=== PATIENT | female | born 1975 | race Caucasian/White ===

== ENCOUNTER 2020-08-24 17:48 | Emergency (ER) | payer OTHER, SELFPAY ==
[2020-08-24 17:52] VITALS: BP 141/69; PULSE 79; RESP 18; TEMP 36.6; O2SAT 98; BMI 32.3
[2020-08-24] MEDS: Lidocaine HCl 1 % MPF 5 ML VIAL 10 ML SUBCUT (19:11)
[2020-08-24 19:14] LABS: UPreg QC Valid YES; Urine Pregnancy NEGATIVE (NEGATIVE)
--- NOTE | 2020-08-24 19:39 | ED.WOUNDLAC ---
HPI - Wound/Laceration General Chief Complaint: Wound/Laceration Stated Complaint: Finger lac Time Seen by Provider: 08/24/20 18:50 Source: patient Mode of arrival: ambulatory Limitations: no limitations History of Present Illness HPI narrative: 38-year-old female presenting with laceration to the lateral aspect of the left index finger occurred at home while preparing food. Knife was clean. Slight bleeding from site unsure of last tetanus vaccination. Has full range of motion. Onset (ago): minute(s) Related Data Allergies Allergy/AdvReac Type Severity Reaction Status Date / Time amoxicillin [Amoxicillin] Allergy Mild HIVES Unverified 05/31/20 16:18 Penicillins Allergy Mild HIVES Unverified 05/31/20 16:18 Sulfa (Sulfonamide Allergy Mild HIVES Unverified 05/31/20 16:18 Antibiotics) penicillin V Allergy Unknown Verified 12/21/15 00:00 Review of Systems Review of Systems: Constitutional: No Weight loss, No Fever, No Chills, No Night Sweats, No Fatigue, No Malaise ENT/Mouth: No Hearing loss, No Ear Pain Eyes: No Eye Pain, No Swelling, No Redness Cardiovascular: No Chest Pain, No SOB, No Dyspnea on Exertion, No Orthopnea, No Edema, No Palpitations Respiratory: No Cough, No Sputum, No Wheezing, No Smoke Exposure, No Dyspnea Gastrointestinal: No Nausea, No Vomiting, No Diarrhea, No Constipation, No abdominal Pain Genitourinary: No Dysuria Musculoskeletal: No joint pain, No Myalgias, No Joint Swelling Skin: No Skin Lesions, No rash, as noted in HPI L index finger lac Neuro: No Weakness, No Numbness, No Paresthesias, No Loss of Consciousness, No Dizziness, No Headache Psych: No Social Issues Heme/Lymph: No Bruising, No Bleeding,No Lymphadenopathy Endocrine: No Polyuria, No Polydipsia, No Temperature Intolerance Yes all other systems are reviewed and are negative [facility] Past Medical History Medical History (Updated 08/24/20 @ 19:45 by Omkar Todd NP) ADD (attention deficit disorder) Social History Social History Alcohol intake: never Smoked in Last 30 Days: No Use of substances other than those prescribed or required for medical reasons: No Advance Directives: No Advance Directives Information Provided: Yes Physical Exam Vital Signs: Vital Signs: Last Vital Signs Temp 98 F 08/24/20 17:52 Pulse 79 08/24/20 17:52 Resp 18 08/24/20 17:52 BP 141/69 H 08/24/20 17:52 Pulse Ox 98 08/24/20 17:52 Body Mass Index 32.3 Reviewed Const: General: cooperative and healthy appearing; No acute distress or intoxicated appearing Nutritional Appearance: average body habitus Orientation/consciousness: patient oriented x3 HENMT: Head: Yes normal to inspection Ears: hearing grossly normal bilaterally Chest: Chest palpation & inspection: normal inspection of the chest Resp: Effort & Inspection: normal respiratory effort Cardio: Jugular venous distension: no JVD Skin: General skin exam: no rashes or lesions noted Neuro: General: patient oriented x3 Extrem: General: Yes normal to inspection Hand/finger images: 1. 1.5 centimetre superficial laceration only through the adipose tissue. Has full range in, flexion, extension, adduction and abduction. Cap refill within normal limits. Course Course Course Narrative: Single superficial laceration to the left index finger requiring for superficial stitches to repair. Given tetanus vaccination. No ligament taken involvement. Neurovascular intact. No need for antibiotics. Given her tetanus vaccination, finger splint and home care instructions. No need for antibiotics. She feels comfortable plan stable for discharge will return in 7 days for suture removal. Procedures Laceration Laceration 1: Site: hand (Index finger) Side (If applicable): left Size (cm): 1.5 Description: linear Depth: simple, single layer Local Anesthetic: lidocaine 1% Amount of anesthesia used (mL): 4 Skin layer closed with: nylon Size (cm): 5-0 Number of sutures: 4 Technique: simple, interrupted MDM - Wound/Laceration Lab Data Labs: Lab Results 08/24/20 Range/Units 18:53 Urine Test NEGATIVE (NEGATIVE) Discharge Plan Discharge Clinical Impression: Laceration Patient Disposition: Home, Self-Care Instructions: Finger Laceration (ED) Additional Instructions: Today you were evaluated for the laceration to the left index finger requiring localize number medication and suture repair Your given a tetanus vaccination Use finger splint for comfort And to mobilize the finger to allow further healing Keep site clean and dry for the 1st 48 hours and after you can wash with soap and water but do not submerge underwater Monitor for any signs of infection including redness, swelling, discharge, pain, fever if any these present returns emergency room right away otherwise return in 7 days for suture removal Thank you Referrals: Pernell Brand MD, DO [Primary Care Provider] - 1 week Omkar Todd NP [Emergency Midlevel Provider] - 1 week (Suture removal )
== END 2020-08-24 20:03 | disposition home or self-care (01) ==
PROVIDERS: Emergency Provider Internal Medicine; PCP Internal Medicine
DX: S61.211A Laceration without foreign body of left index finger without damage to nail, initial encounter (principal); S60.411A Abrasion of left index finger, initial encounter; M79.645 Pain in left finger(s); W26.9XXA Contact with unspecified sharp object(s), initial encounter; Y93.G3 Activity, cooking and baking; Y92.000 Kitchen of unspecified non-institutional (private) residence as the place of occurrence of the external cause; Y99.9 Unspecified external cause status; Z23 Encounter for immunization
CPT/HCPCS: 12001; 81025; 90471; 90715; 99284

== ENCOUNTER 2020-10-15 10:40 | Outpatient (REF) | payer OTHER, SELFPAY | END 2020-10-15 10:41 | disposition home or self-care (01) | LOC: HO.LAB 10:40 | PROVIDERS: Visit Provider Internal Medicine | DX: Z20.822 Contact with and (suspected) exposure to COVID-19 (principal) | CPT/HCPCS: 36415; C9803; U0003; U0005 ==